=== PATIENT | female | born 1935 | race Caucasian/White ===

== ENCOUNTER 2019-01-31 01:55 | Inpatient (IN) | payer MEDICARE ==
--- OUTSIDE RECORDS SUMMARY | 2019-01-31 02:09 | XMS REPORT | Continuity of Care Document ---
:1935 External Reference #:[id number] Author Name Pham Andrade NP Address [address] [place] [address] Care Team Providers Name Role Phone Jon Edouard MD - Family Medicine Care Team Information Manager Pulmonary Problems Description No Information Available Social History Type Date Description Comments Sex Unknown Allergies, Adverse Reactions, Alerts Active Allergies Reaction Severity Comments Date Demerol swelling- face/ tongue 11/30/2018 Sulfa swelling- tongue, face 11/30/2018 Medications Active Medications SIG Qnty Indications Ordering Provider Date Glipizide ER 1 po bid Unknown 2.5mg Tablets ER 24HR Levothyroxine Sodium 1 po qd Unknown 112mcg Tablets Amlodipine Besylate 1 po qd Unknown 5mg Tablets Losartan Potassium 1 po qd Unknown 50mg Tablets Doxazosin Mesylate 1 po qd Unknown 2mg Tablets Multivitamin 1 po qd Unknown Fish Oil 1 po qd Unknown 1200mg Capsules Immunizations Description No Information Available Vital Signs Date Vital Result Comment 01/06/2019 6:48pm BP Systolic 124 mmHg BP Diastolic 60 mmHg Heart Rate 60 /min Body Temperature 97.5 F Respiratory Rate 16 /min Height 64.5 inches 5'4.50" Weight 161.00 lb BMI (Body Mass Index) 27.2 kg/m2 11/30/2018 2:24pm BP Systolic 142 mmHg BP Diastolic 80 mmHg Heart Rate 74 /min Body Temperature 97.7 F Respiratory Rate 20 /min Height 64.5 inches 5'4.50" Weight 175.00 lb per pt w/c bound BMI (Body Mass Index) 29.6 kg/m2 Results Test Date Facility Test Result H/L Range Note CBC Electronic [facility] 11/30/2018 [facility] WBC 13.5 x10^3/UL High 4.0-10.0 1 RBC 4.14 x10^6/UL 3.93-6.00 HGB 13.4 g/dL 12.0-17.0 HCT 41 % 35-50 MCV 99.0 fL High 80.0-95.0 2 MCH 32.4 pg High 25.6-32.2 MCHC 32.7 g/dL 32.2-36.0 RDW-CV 15.2 % High 11.6-14.4 PLT 291 x10^3/UL 163-400 MPV 10.7 fL 9.4-12.4 Erin# 8.22 x10^3/UL High 1.56-6.13 Lymph# 3.55 x10^3/UL 1.18-3.74 Burke# 1.26 x10^3/UL High 0.24-0.82 Eos # 0.4 x10^3/UL 0.0-0.5 Baso # 0.03 x10^3/UL 0.01-0.08 Erin% 61.1 % 34.0-70.0 Lymph % 26.3 % 20.0-52.0 Burke% 9.3 % 5.0-12.0 Eos% 3.0 % 0.7-7.0 Baso% 0.2 % 0.1-1.2 Comprehensive Metabolic 11/30/2018 [facility]) Sodium 142 mEq/L 134-149 Prof Potassium 4.1 mEq/L 3.6-5.5 Chloride 103 mEq/L 94-112 Carbon Dioxide 30 mEq/L 21-32 Glucose 147 mg/dL High 70-105 3 BUN 13 mg/dL 6-26 Creatinine 1.2 mg/dL 0.6-1.4 BUN/Creat Ratio 10.8 CALC 8.0-36.0 Calcium 10.0 mg/dL 8.6-10.2 Total Protein 6.8 g/dL 6.4-8.3 Albumin 4.1 g/dL 3.8-5.5 Globulin 2.7 g/dL 2.0-4.8 A/G Ratio 1.5 CALC 0.6-2.3 Alk. Phosphatase 50 U/L 30-110 Alt (SGPT) 12 U/L 7-35 Ast (Sgot) 14 U/L 5-34 Total Bilirubin 0.7 mg/dL 0.2-1.3 GFR Non- 46 ml/min/1.73m^ Low >=60 GFR 55 ml/min/1.73m^ Low >=60 Laboratory test 11/30/2018 [facility] Hemoglobin A1c 6.8 % High 4.1- 5.7 finding (607)- - (Fma) Ua - Micro (Fma) 11/30/2018 [facility] Medicine Appearance clear (607)- - Color yellow Glucose, Urine (Fma/CMC/CTX) neg Bilirubin neg Ketones neg SP Grav 1.015 Blood neg PH 5.5 Protein neg Urobil 0.2 Nitrite neg Leukocytes (Fma/CMC/Centrex) neg Hyaline - /Lpf Granular - /Lpf WBC (Fma,Centrex) 1-2 RBC - Mucus (Fma/CBC/Centrex) - /Lpf Epith rare /Lpf Bacteria rare /Hpf Amorphous (Fma/CMC/Centrex) - /Lpf Crystals, Fluid (Fma/CMC/CTX) - Z#Comments - 1 RESULTS VERIFIED BY REPEAT ANALYSIS 2 RESULTS VERIFIED BY REPEAT ANALYSIS 3 NON-FASTING Procedures Description No Information Available Medical Devices Description No Information Available Encounters Type Date Location Provider Dx Diagnosis Office Visit 11/30/2018 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, unspecified R26.2 Difficulty in walking, not elsewhere classified N28.89 Other specified disorders of kidney and ureter N39.46 Mixed incontinence Assessments Date Code Description Provider 01/06/2019 R00.1 Bradycardia, unspecified Pham Andrade NP 11/30/2018 C71.9 Malignant neoplasm of brain, unspecified ZAYDA Thorpe 11/30/2018 R26.2 Difficulty in walking, not elsewhere ZAYDA Thorep classified 11/30/2018 N28.89 Other specified disorders of kidney and ZAYDA Thorpe ureter 11/30/2018 N39.46 Mixed incontinence ZAYDA Thorpe Plan of Treatment Future Appointment(s):01/13/2019 2:30 pm - Jon Edouard M.D. at [facility] [id number]/06/2019 - Pham Andrade, NPR00.1 Bradycardia, unspecifiedComments: If you have any more passing out, or if you develop chest pain or shortness of breath, please go to the nearest emergency department.AllComments:1. Patient has been queried about patient's goals/preferences and functional/lifestyle goals at relevant visits. If relevant, describe: Has been discussed, noted above2. Treatment goals as explainedto the patient: see above3. Are there barriers to meeting treatment goals? Yes If Yes, please describe: Barriers include possible insurance limits, disease process, and difficulty with lifestyle changes4. Self-Management goals as described to the patient: Yes, see above As always, we strongly encourage a healthy diet and making physical activity a part of your every day life. If you have questions about how or where to start, please contact the office. Functional Status Description No Information Available Mental Status Description No Information Available Referrals Description No Information Available
--- OUTSIDE RECORDS SUMMARY | 2019-01-31 02:09 | XMS REPORT | Continuity of Care Document ---
:1935 External Reference #:[id number] Author Name ZAYDA Thorpe Address [address] [place] [address] Care Team Providers Name Role Phone Jon Edouard MD - Family Medicine Care Team Information Decatizer Problems Description No Information Available Social History Type Date Description Comments Sex Unknown Allergies, Adverse Reactions, Alerts Active Allergies Reaction Severity Comments Date Demerol swelling- face/ tongue 11/30/2018 Sulfa swelling- tongue, face 11/30/2018 Medications Active Medications SIG Qnty Indications Ordering Provider Date Glipizide ER Unknown 2.5mg Tablets ER 24HR Levothyroxine Sodium Unknown 112mcg Tablets Amlodipine Besylate Unknown 5mg Tablets Losartan Potassium Unknown 50mg Tablets Doxazosin Mesylate Unknown 2mg Tablets Multivitamin Unknown Fish Oil Unknown 1200mg Capsules Clonazepam 2-5MG as needed Unknown Immunizations Description No Information Available Vital Signs Date Vital Result Comment 11/30/2018 2:24pm BP Systolic 142 mmHg BP [...] x10^3/UL High 1.56-6.13 Lymph# 3.55 x10^3/UL 1.18-3.74 Dundy# 1.26 x10^3/UL High 0.24-0.82 Eos # 0.4 x10^3/UL 0.0-0.5 Baso # 0.03 x10^3/UL 0.01-0.08 Erin% 61.1 % 34.0-70.0 Lymph % 26.3 % 20.0-52.0 Dundy% 9.3 % 5.0-12.0 Eos% 3.0 % 0.7-7.0 Baso% 0.2 % 0.1-1.2 Comprehensive Metabolic 11/30/2018 [facility]) Sodium 142 mEq/L 134-149 Prof Potassium 4.1 [...] 55 ml/min/1.73m^ Low >=60 Laboratory test 11/30/2018 [facility] Hemoglobin A1c 6.8 % High 4.1- 5.7 finding (607)- - (Fma) Ua - Micro (Fma) 11/30/2018 [facility] Appearance clear (607)- - Color yellow [...] Medical Devices Description No Information Available Encounters Description No Information Available Assessments Date Code Description Provider 11/30/2018 C71.9 Malignant neoplasm of brain, unspecified ZAYDA Thorpe 11/30/2018 R26.2 Difficulty in walking, not elsewhere classified ZAYDA Thorpe 11/30/2018 N28.89 Other specified disorders of kidney and ureter ZAYDA Thorpe 11/30/2018 N39.46 Mixed incontinence ZAYDA Thorpe Plan of Treatment Future Appointment(s):01/13/2019 2:30 pm - Jon Edouard M.D. at [facility]11/30/2018 - Amarilis Valero, PAC71.9 Malignant neoplasm of brain, unspecifiedComments:Continue to follow with your oncologist.R26.2 Difficulty in walking, not elsewhere classifiedComments:Use your tools - wheelchair, walker, and stability bars. You will be receiving calls from [facility] and the [facility] to help assess your safety as well as physical therapy to help with balance and conditioning.N28.89 Other specified disorders of kidney and ureterComments:Check labs [id number] Mixed incontinenceComments:Continue doxazosin.AllComments:PCMHMedication Management Patient Understands medications he's taking? Yes Are there Barriers to Adherence? No Has the patient been asked about herbal supplements and therapies, and OTC meds? Yes Care Plan1. Patient has been queried about patient's goals/preferences and functional/lifestyle goals at relevant visits. Yes If relevant, describe: N/ A2. Treatment goals as explained to the patient: above3. Are there barriers to meeting treatment goals? No If Yes, please describe:4. Self- Management goals as described to the patient: Yes As always, we strongly encourage a healthy diet and making physical activity a part of your every day life. If you have questions about how or where to start, please contact the office. Functional Status Description No Information Available Mental Status Description No Information Available Referrals Description No Information Available
--- NOTE | 2019-01-31 02:11 | ED ---
Neurological HPI - HPI Summary HPI Summary: This patient is an 83 year old F presenting to [facility] with a chief complaint of weakness in lower extremities since prior to arrival. Pt reports she was on her feet all day moving out of her apartment, so when she arrived home she could not make it up the stairs. She lives with her two sons. Patients doctors believe the the weakness is caused by the steroid she is on. She is on steroids due to swelling in her brain. Patients son indicates that her doctors are trying to wean her off steroids, so she also gets withdrawals. On 01/27/19, pt reports she was lightheaded, weak and, dizzy. Pt denies weakness in arms, SOB, CP, abdominal pain, nausea, vomiting, and loss of appetite. Per triage, the patient rates the pain 0/10 in severity. - History of Current Complaint Chief Complaint: EDWeakness Stated Complaint: WEAKNESS PER EMS Time Seen by Provider: 01/31/19 02:07 Hx Obtained From: Patient, Family/Fence Installer Onset/Duration: Sudden Onset, Started minutes ago Current Severity: None Pain Intensity: 0 Pain Scale Used: 0-10 Numeric Character: Weak Aggravating: Exertion Alleviating: Nothing Associated Signs and Symptoms: Positive: Weakness, Dizziness, Lightheadness. Negative: Nausea/Vomiting, Chest Pain, Shortness of Breath - Allergy/Home Medications Allergies/Adverse Reactions: Allergies Allergy/AdvReac Type Severity Reaction Status Date / Time meperidine [From Demerol] Allergy Swelling Verified 01/31/19 02:05 Of Face,Lips,& Throat Sulfa (Sulfonamide Allergy Anaphylatic Verified 01/31/19 02:05 Antibiotics) Shock Home Medications: Home Medications Dexamethasone TAB* [Decadron TAB*] 2 mg PO DAILY 01/31/19 [History Confirmed ] Fish Oil 1,200 mg Softgel 1 cap PO DAILY 01/31/19 [History Confirmed 01/31/19] Levothyroxine Sodium 112 mcg PO DAILY 01/31/19 [History Confirmed 01/31/19] amLODIPine TAB* 5 mg PO DAILY 01/31/19 [History Confirmed 01/31/19] clonazePAM TAB(*) [KlonoPIN TAB(*)] 0.25 mg PO TID PRN 01/31/19 [History Confirmed 01/31/19] glipiZIDE [Glipizide ER] 0.25 mg PO DAILY 01/31/19 [History Confirmed 01/31/19] PMH/Surg Hx/FS Hx/Imm Hx Endocrine/Hematology History: Reports: Hx Diabetes Sensory History: Denies: Hx Legally Blind, Hx Deafness Opthamlomology History: Denies: Hx Legally Blind EENT History: Denies: Hx Deafness - Cancer History Cancer Type, Location and Year: Brain Tumor - Surgical History Surgery Procedure, Year, and Place: left kidney removal Infectious Disease History: No Infectious Disease History: Denies: Traveled Outside the [place] in Last 30 Days - Family History Known Family History: Positive: Diabetes - Social History Lives: With Family Alcohol Use: None Substance Use Type: Reports: None Smoking Status (MU): Never Smoked Tobacco Review of Systems Negative: Other - loss of appetite Negative: Chest Pain Negative: Shortness Of Breath Negative: Abdominal Pain, Vomiting, Nausea Neurological: Other - lightheaded Positive: Weakness All Other Systems Reviewed And Are Negative: Yes Physical Exam - Summary Physical Exam Summary: Appearance: Well-appearing, Well-nourished, lying in bed comfortably Skin: Warm, dry, no obvious rash Eyes: sclera anicteric, no conjunctival pallor ENT: mucous membranes moist, pharynx appears normal Neck: Supple, nontender Respiratory: Clear to auscultation, no signs of respiratory distress Cardiovascular: Normal S1, S2. No murmurs. Normal distal pulses in tibial and radial bilaterally. Abdomen: Soft, nontender, normal active bowel sounds present Musculoskeletal: Normal, Strength/ROM Intact Neurological: A&Ox3, awake and alert, mentation is normal, speech is fluent and appropriate; mild symmetric weakness in lower extremities, can lift both legs but not against resistance Psychiatric: affect is normal, does not appear anxious or depressed Triage Information Reviewed: Yes Vital Signs On Initial Exam: Initial Vitals Temp Pulse Resp BP Pulse Ox 97.8 F 60 16 147/86 93 01/31/19 02:02 01/31/19 02:02 01/31/19 02:02 01/31/19 02:02 01/31/19 02:02 Vital Signs Reviewed: Yes Procedures - Sedation Patient Received Moderate/Deep Sedation with Procedure: No Diagnostics - Vital Signs Vital Signs Temp Pulse Resp BP Pulse Ox 01/31/19 02:02 97.8 F 60 16 147/86 93 - Laboratory Result Diagrams: 01/31/19 02:28 01/31/19 02:28 Lab Statement: Any lab studies that have been ordered have been reviewed, and results considered in the medical decision making process. - EKG 0305 Cardiac Rate: NL EKG Rhythm: Sinus Bradycardia Summary of EKG Findings: EKG at 0305 reveals sinus bradycardia at 55 BPM, P waves, QRS complex, and T waves are within normal limits, T waves and intervals are normal, no ischemic changes. ED Physician has reviewed and interpreted this EKG. Course/Dx - Course Course Of Treatment: This patient is an 83 year old F presenting to [facility] with a chief complaint of weakness in lower extremities since prior to arrival. Pt reports she was on her feet all day moving out of her apartment, so when she arrived home she could not make it up the stairs. She lives with her two sons. Patients doctors believe the the weakness is caused by the steroid she is on. She is on steroids due to swelling in her brain. Patients son indicates that her doctors are trying to wean her off steroids, so she also gets withdrawals. On 01/27/19, pt reports she was lightheaded, weak and, dizzy. Pt denies weakness in arms, SOB, CP, abdominal pain, nausea, vomiting, and loss of appetite. Per triage, the patient rates the pain 0/10 in severity. Physical exam findings. Nml, mild symmetric weakness in le, can lift both legs but not against resistance. Blood work obtained. MCH is 32, BUN is 38, Creatinine is 1.30, BUN/Creatinine Ratio is 29.2, Glucose is 230, and Total Protein is 5.9. UA obtained. Urine Blood is 2+, Urine Leuocyte Esterase is 2+, Urine Bacteria is 1+. EKG at 0305 reveals sinus bradycardia at 55 BPM, P waves, QRS complex, and T waves are within normal limits, T waves and intervals are normal, no ischemic changes. ED Physician has reviewed and interpreted this EKG. 05:32 - Dr. Orona accepts pt for admission. Patient will be admitted. The patient is agreeable with this plan. - Diagnoses Provider Diagnoses: Generalized weakness, UTI (urinary tract infection) - Physician Notifications Discussed Care Of Patient With: Kayce Orona Time Discussed With Above Provider: 05:32 Instructed by Provider To: Other - Discussed case with Dr. Orona who accepts pt for admission. Discharge ED - Sign-Out/Discharge Documenting (check all that apply): Patient Departure - Admit - Discharge Plan Condition: Stable Disposition: ADMITTED TO [facility] - Billing Disposition and Condition Condition: STABLE Disposition: Admitted to [facility] - Attestation Statements Document Initiated by Gabrielaibe: Yes Documenting Scribe: Joelle Garza Provider For Whom Gabrielaibe is Documenting (Include Credential): Fausto Pfeiffer MD Scribe Attestation: Joelle Andrews scribed for Fausto Pfeiffer MD on 02/01/19 at 0329. Scribe Documentation Reviewed: Yes Provider Attestation: The documentation as recorded by the Joelle reynoso accurately reflects the service I personally performed and the decisions made by Fausto aldridge MD Status of Scribe Document: Viewed
[2019-01-31 02:36] LABS: ABS Lymphocytes 2.2 10^3/ul (1.0-4.8); ABS Monocytes 1.3 10^3/ul (0-0.8); Eosinophil % 0.3 %; Hematocrit 41 % (35-47); Hemoglobin 13.9 g/dL (12.0-16.0); Lymphocyte % 20.7 %; Mean Corpuscular HGB Conc 34 g/dL (31-36); Mean Corpuscular Hemoglobin 32 pg (27-31); Mean Corpuscular Volume 96 fL (80-97); Mean Platelet Volume 9.4 fL (7.4-10.4); Nucleated Red Blood Cells % 0.1; Platelet Count 185 10^3/uL (150-450); Red Blood Count 4.29 10^6 /uL (3.70-4.87); Red Cell Distribution Width 15 % (10-15); White Blood Count 10.5 10^3/uL (3.5-10.8)
[2019-01-31 02:51] LABS: Albumin 3.3 g/dL (3.2-5.2); Albumin/Globulin Ratio 1.3 (1-3); BUN/Creatinine Ratio 29.2 (8-20); Calcium 9.4 mg/dL (8.6-10.3); EGFR African American 47.3 (>60); EGFR Non-African American 39.1 (>60); Globulin 2.6 g/dL (2-4); Total Bilirubin 0.5 mg/dL (0.2-1.0); Total Protein 5.9 g/dL (6.4-8.9)
[2019-01-31 03:30] LABS: Potassium 4.3 mmol/L (3.5-5.0)
[2019-01-31 04:45] LABS: Urine Appearance Cloudy; Urine Bacteria 1+ (Absent); Urine Bilirubin Negative (Negative); Urine Blood 2+ (Negative); Urine Color Yellow; Urine Glucose Negative (Negative); Urine Ketones Negative (Negative); Urine Nitrite Negative (Negative); Urine Protein Negative (Negative); Urine Red Blood Cell 1+(3-5/hpf) (Absent); Urine Renal Epithelial Cells Present (Absent); Urine Specific Gravity 1.009 (1.010-1.030); Urine Squamous Epithelial Cell Present (Absent); Urine Urobilinogen Negative (Negative); Urine White Blood Cell 3+(>20/hpf) (Absent)
[2019-01-31] MEDS ORDERED: cefTRIAXone(*) 1 GM in NS 0.9% 50 ML* 50 ML IVPB ONE (05:17)
[2019-01-31] MEDS ORDERED: Dextrose 50% VIAL 50 ml IV PUSH PRN (08:19)
[2019-01-31] MEDS ORDERED: NS 0.9% 1000 ML** 1,000 ML IV SCH (08:30)
[2019-01-31] MEDS ORDERED: clonazePAM TAB(*) 0.5 MG PO PRN (09:00)
[2019-01-31] MEDS: amLODIPine TAB* 5 MG PO SCH (09:23)
[2019-01-31] MEDS: Dexamethasone TAB* 4 MG PO SCH (09:23)
[2019-01-31] MEDS: Levothyroxine TAB* 112 MCG TAB PO SCH (09:23)
[2019-01-31] MEDS: glipiZIDE TAB.XL* 2.5 MG PO SCH (09:23)
[2019-01-31 10:00] LABS: TSH (Thyroid Stimulating Horm) 0.34 mcIU/mL (0.34-5.60)
[2019-01-31] MEDS: Insulin LISPRO* 1 UNITS UNIT SUBCUT SCH ×3 (11:37→21:13)
--- NOTE | 2019-01-31 11:43 | HP ---
CC: Dr. Jon Edouard; Dr. Day; ZAYDA Serra; Neurosurgery at Hematology/ Oncology [facility] in [place] * HISTORY AND PHYSICAL: DATE OF ADMISSION: 01/31/19 TIME OF EVALUATION: 8 a.m. PRIMARY CARE PROVIDER: Dr. Jon Edouard. NEUROSURGEON: Dr. Day. NEUROSURGICAL PHYSICIAN MIXER LEVER OPERATOR: ZAYDA Serra CHIEF COMPLAINT: "My legs are weak." HISTORY OF PRESENT ILLNESS: Mrs. Wilkinson is an 83-year-old female with a past medical history of hypertension; type 2 diabetes; renal cancer, status post nephrectomy, with metastasis to the brain who presented to the emergency room with complaints of weakness. The patient's story goes back to a couple of years ago when she was spending the winter in [place]. She was diagnosed with renal cell cancer, had a nephrectomy done followed by radiation. In May 2018, she developed gradual onset of weakness and dizziness and she was evaluated at [facility] [place] in [place] in June 2018. A CT of the brain revealed a 1.3 cm left-sided hyperdense pontine lesion with edema extending to the left mid brain and into the cerebellar peduncle. She was admitted to [facility] for neurosurgical consultation, and at that point, she was started on dexamethasone. MRI of the brain done at that time showed the tumor's dimension to be 1.6 cm. The patient returned to the [facility] and she has been following at Neurosurgery at Hematology/Oncology [facility] in [place]. She completed CyberKnife in 4 fractions in September 2018 and she developed dizziness and lightheadedness after her dexamethasone was tapered and discontinued. At that time, she was already complaining of bilateral lower extremity weakness, had a hard time getting off the toilet, and there is a mention of uncontrolled glucose while on steroids. As per the patient, "she cannot be off steroids, so she continues to take dexamethasone." She states that she lived in [place] and can no longer live by herself, so her son is assisting her into moving to [place]. She states that yesterday from around 2 in the afternoon until 1 in the morning she was helping her son move her stuff to his home. She was packing boxes and he was carrying them to the car. They drove back to the [facility], and when she arrived home, she could not go upstairs because of lower extremity weakness, so at that point she was brought to the emergency room for further evaluation. When questioned exactly when the lower extremity weakness started, the patient has some difficulty pinpointing the exact time, but she thinks probably since around June she has noted progressive weakness requiring assistance to get up from her bed, from toilet, and she was able to go upstairs, but needed her son' s assistance. When I asked when was the last time she was able to go upstairs without help, she answers that "it's been a while." She also describes increased urinary frequency, but denies dysuria, abdominal or back pain. She also denies nausea, vomiting, diarrhea, chest pain, palpitations, shortness of breath. PAST MEDICAL HISTORY: 1. Renal cell cancer, status post nephrectomy and radiation in 2016. 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 2. Hypertension. 3. Type 2 diabetes. 4. Hypothyroidism. PAST SURGICAL HISTORY: Status post tonsillectomy in 1939, status post adenoidectomy in 1939, status post appendectomy in 1939, status post hernia repair in 1979, status post cholecystectomy in 1969, status post left nephrectomy and splenectomy in 2016. FAMILY HISTORY: There is a history of nuclear palsy and spina bifida. SOCIAL HISTORY: No history of tobacco, alcohol, or drug use. Surrogate decision maker is her son, Yobany Wilkinson, phone number is [phone]. PHYSICAL EXAMINATION GENERAL: The patient is an elderly lady with cushingoid features, lying in the ED stretcher, in no acute distress. VITAL SIGNS: Temperature 97.8, heart rate is 79, respiratory rate is 18, oxygen saturation is 95% on room air, blood pressure is 125/63. CHEST: Breath sounds present bilaterally with no added sounds. CVS: Normal S1, S2. Regular rate and rhythm with a systolic murmur. ABDOMEN: Obese, soft, nontender, nondistended. Bowel sounds are present. EXTREMITIES: There is no edema. NEUROLOGIC: She is alert, awake, oriented x3. Able to move all 4 extremities. She is able to hold both arms against gravity for 5 seconds and against resistance. She can lift both legs up to 30 degrees from the bed and cannot fight resistance. Most of her weakness appears to be proximal at the quadriceps area. LABORATORY AND IMAGING DATA: The patient had a CBC that showed a WBC of 10.5, hemoglobin of 13.9, hematocrit of 41, platelets of 185 with 66% neutrophils. Chemistry showed a sodium of 138, potassium of 4.3, chloride of 103, bicarb of 28, BUN of 38, creatinine of 1.3, glucose of 230, lactic acid is 1.6, calcium is 9.4. LFTs are normal. Urinalysis showed 2+ blood, 2+ LE, 3+ wbc's. CT of the brain without contrast shows a hyperdense mass involving the left andrew mid brain and cerebellum measuring approximately 1.5 cm with surrounding vasogenic edema. EKG done 01/31/19 at 3:05 a.m. shows sinus bradycardia at 55 beats per minute with T-wave inversions in III, T flattening in aVF. There is no prior EKG in our system to compare, but as per PCP's note from 01/06/19, the patient presented for slow pulse around 40s and 50s while at physical therapy, also with a history of witnessed syncope earlier in December. Per that record, the patient described that her heart rate is always slow and the plan at that time was to get records from her extruding machine operator, Dr. Eric in [place]. Other records obtained showed that the patient had an MRI of the brain in November 2018 with and without contrast that showed a heterogeneously enhancing mass lesion in the left mid brain and andrew measuring up to 2.5 cm with slightly increased localized vasogenic edema and mass effect compared to August 2018. These findings may be related to treatment effects versus progression of tumor. Findings are most suspicious for intracranial metastasis versus primary brain neoplasm. Very slight increase in ventricular size with transependymal CSF flow suspicious for developing acute hydrocephalus. Echocardiogram done September 2016 showed ejection fraction 60% to 65% with mild aortic insufficiency, mild tricuspid stenosis. ASSESSMENT AND PLAN: Mrs. Wilkinson is an 83-year-old female with a past medical history of renal cell carcinoma, status post left nephrectomy, with brain metastasis, status post CyberKnife; hypertension; hypothyroidism; type 2 diabetes who presented to the emergency room with complaints of weakness, found to have possible urinary tract infection. 1. Bilateral lower extremity weakness. 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 The patient has had months of progressive weakness, and at this point, she is not able to negotiate stairs even with assistance. The records I obtained show that she could not tolerate discontinuation of steroids. I am going to request neurology consultation to see if any further workup is recommended, but her brain lesion appears to be stable in size and I do not find any other focal neuro deficits that would suggest other etiology. We will check a CPK level as well as a TSH looking for other sources of myopathy. She will have physical therapy/occupational therapy consultations and she may require subacute rehab on discharge. 2. Possible urinary tract infection. The patient does describe increased urinary frequency, but no dysuria or other urinary complaints. Her urinalysis is positive for leukocyte esterase, but it has no nitrites and it has many squamous and renal epithelial cells. We will continue ceftriaxone empirically and follow her urine culture, but this may represent just contamination. As per emergency department notes, it is not clear if she was straight catheterized for this sample. 3. Mild dehydration. The patient had a very busy day yesterday helping her son with her move and she appears to be a little dry at this time. She will receive gentle IV fluids. 4. Type 2 diabetes. As per other notes, it is chronically uncontrolled in the setting of chronic steroid use. We will check a hemoglobin A1c. We will continue glipizide and add a lispro sliding scale. 5. Hypothyroidism. We will continue levothyroxine. 6. DVT prophylaxis. The patient has a score of 5 on a DVT Prophylaxis Risk Assessment Guide, but pharmacological prophylaxis is contraindicated in the setting of brain metastases. She will have SCDs. 7. Code status is full. TIME SPENT: Approximately 70 minutes was spent with the patient interview, medical records review, physical examination to complete this admission; more than half of this time was spent [id number] with the patient and coordination of care. [id number]/[facility] #: [id number] LYNN
[2019-01-31] MEDS ORDERED: Influenza VAC *QUAD* 2019-20* 0.5 ML SYRINGE IM ONE (13:00)
[2019-02-01] MEDS: Levothyroxine TAB* 112 MCG TAB PO SCH (05:34)
[2019-02-01 06:12] LABS: BUN/Creatinine Ratio 30.3 (8-20); Calcium 8.9 mg/dL (8.6-10.3); EGFR African American 52.4 (>60); EGFR Non-African American 43.3 (>60); Potassium 3.8 mmol/L (3.5-5.0)
[2019-02-01] MEDS: Insulin LISPRO* 1 UNITS UNIT SUBCUT SCH ×4 (07:19→21:42)
[2019-02-01] MEDS: glipiZIDE TAB.XL* 2.5 MG PO SCH (08:06)
[2019-02-01] MEDS: cefTRIAXone(*) 1 GM in NS 0.9% 50 ML* 50 ML IVPB SCH (08:06)
[2019-02-01] MEDS: amLODIPine TAB* 5 MG PO SCH (08:07)
[2019-02-01] MEDS: Dexamethasone TAB* 4 MG PO SCH (08:07)
--- NOTE | 2019-02-01 09:54 | CONS ---
CC: Dr. Noriega; Dr. Edouard; Dr. Gallo Day, [facility] Neurosurgery * NEUROLOGY CONSULTATION: DATE OF CONSULT: 02/01/19 REFERRING PROVIDER: Dr. Noriega. LOCATION: She is an inpatient in room 455. CHIEF COMPLAINT: Weakness. HISTORY OF PRESENT ILLNESS: Cassandra Wilkinson is an 83-year-old woman with a history of renal cell carcinoma, metastatic to her brain stem, who presented to the hospital yesterday with leg weakness. She was moving into the second story apartment of her son's because of increased need for care. She was not able to get up the stairs. She presented to the emergency room and was admitted. She was found to have proximal weakness on Dr. Noriega's exam. She had a normal CPK. She says that normally she can walk "not much". She said she uses a walker. She does not exercise. She has not noticed any change in her dizziness , change of vision, or weakness in her arms. She was also found to have a urinary tract infection. PAST MEDICAL HISTORY: Renal carcinoma diagnosed in [place] in 2017. She had a nephrectomy and radiation. She was found to have brain stem metastases in 2019 in [facility]. She underwent gamma knife therapy by Dr. Day in [place]. She has been on dexamethasone for months. She says it was last decreased a couple of weeks ago. She has a history of hypertension, type 2 diabetes, hypothyroidism. MEDICATIONS: At home consist of: 1. Dexamethasone 2 mg p.o. daily. 2. Clonazepam 0.25 mg p.o. t.i.d. as needed for anxiety. 3. Amlodipine 5 mg p.o. daily. 4. Levothyroxine 112 mcg p.o. daily. 5. Sliding scale insulin. 6. Glipizide 2.5 mg p.o. daily. 7. She was started on ceftriaxone yesterday, 1 g IV q.24 hours. ALLERGIES: She is allergic to SULFA DRUGS and had a reaction to DEMEROL. REVIEW OF SYSTEMS: Notable for dizziness which she says is unchanged from recent months. She denies double vision. She denies difficulty swallowing. She feels generally weak. She denies pain in her legs or arms. She notes some numbness in her toes which is chronic. She says she has fallen several times but no injuries. She uses a walker at home. She denies dysuria, gastrointestinal problems, or shortness of breath. She denies any problems with chest pain. She believes her weight has been stable. She has not noticed any chills or sweats. PHYSICAL EXAM: She is a somewhat overweight woman who is otherwise comfortably sitting in hospital chair. She has been afebrile throughout her hospital stay, most recently 97.9 orally. Blood pressure most recently 139/61, heart rate is running in the 50s and is regular, respiratory rate is 20, oxygen saturation is 95% on room air. Lungs are clear bilaterally. Heart tones are distant, but I do not hear any murmurs. There are no cervical bruits. Oral mucosa is moist, I do not see any thrush. Neurological exam, pupils are small at 2 mm and react minimally to light to 1.75 mm. Eye movements are extremely choppy, but there is no nystagmus. Visual fishman are full. Fascial musculature is notable for mild right lower facial weakness. Facial sensation is intact. Palate rises symmetrically and tongue protrudes in the midline. She has some mild slurring dysarthria. On motor exam, she has grade 4 proximal weakness in the upper extremities and grade 4+ distally in the upper extremities. She has 4-flexor weakness bilaterally. She has 4+ ankle dorsiflexor weakness bilaterally. Reflexes are trace at biceps and knees. Absent at the ankles. There is some mild spastic catch in the left more than the right leg. I did not attempt to ambulate her. Sensory exam is notable for distal sensory loss to light touch and vibration. She is alert and a fair historian. Memory seems vague. Language is generally fluent. Attention and concentration are reasonably intact. DIAGNOSTIC STUDIES/LAB DATA: Includes chemistries this morning notable for BUN at 36 and a creatinine of 1.19. Her BUN was 38 yesterday when she came in and a creatinine 1.30. Her calcium and electrolytes are normal. Hemoglobin A1c this morning is 8.4%. Liver enzymes are normal. Albumin is normal at 2.3. TSH is normal at 0.34. Creatinine kinase is normal at 102. CBC is within normal limits. Urinalysis is notable for being cloudy, 2+ leukocyte esterase, 3 + white blood cells, 1+ red blood cells. Urine bacteria is 1+. Brain CT is interpreted as showing a hyperdense mass involving the left andrew, mid brain, and cerebellum measuring approximately 1.5 cm with surrounding vasogenic edema. I reviewed the images personally and I agreed. There is some enlargement of the lateral ventricles and temporal horns, but the third ventricle looks fairly normal and there is a visible although somewhat deformed 4th ventricle. 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 Hopefully treating the urinary tract infection and getting some physical therapy will get her back on her feet again. It is not safe to decrease the steroids, particularly with the visible edema on her CT scan and location of the lesion that threaten the possibility of hydrocephalus. I think it would be prudent to get neurosurgical consultation just so they are aware of the patient in case she does develop hydrocephalus. At some point, she might benefit from repeating her MRI scan, but we do not have a comparison study here in [place]. I will discuss the case with Dr. Noriega. I also request that we do a nerve conduction EMG study to make sure she does not have anything else going on neuromuscularly. [id number]/[facility] #: [id number] [facility]
--- NOTE | 2019-02-01 09:55 | PN ---
Subjective Date of Service: 02/01/19 Interval History: No pain. Good appetite. Pt states she was to take 0.5 mg per day from 01/26 for 7 days then stop. I verified this on the phone with Dr. Day ). Objective Active Medications: Amlodipine Besylate (Norvasc Tab*) 5 mg PO DAILY [facility] Last Admin: 02/01/19 08:07 Dose: 5 mg Clonazepam (Klonopin Tab(*)) 0.25 mg PO TID PRN PRN Reason: ANXIETY Dexamethasone (Decadron Tab*) 0.5 mg PO DAILY [facility] Dextrose (Dextrose 50% Vial 50 Ml*) 25 ml IV PUSH .FOR FS < 60 - SS PRN PRN Reason: FS < 60 Glipizide (Glucotrol Xl*) 2.5 mg PO DAILY [facility] Last Admin: 02/01/19 08:06 Dose: 2.5 mg Ceftriaxone Sodium 1 gm/ (Sodium Chloride) 50 mls @ 100 mls/hr IVPB Q24H [facility] Last Admin: 02/01/19 08:06 Dose: 100 mls/hr Insulin Human Lispro (Humalog*) 0 units SUBCUT ACHS [facility]; Protocol Last Admin: 02/01/19 07:19 Dose: Not Given Levothyroxine Sodium (Synthroid Tab*) 100 mcg PO DAILY@0600 [facility] Vital Signs - 8 hr 02/01/19 02/01/19 03:41 07:15 Temperature 97.2 F 97.9 F Pulse Rate 54 62 Respiratory 16 20 Rate Blood Pressure 122/56 139/61 (mmHg) O2 Sat by Pulse 98 95 Oximetry Oxygen Devices in Use Now: None Appearance: Alert, partly up in bed. In good spirits. Looks comfortable. Eyes: No Scleral Icterus Respiratory: Symmetrical Chest Expansion and Respiratory Effort, Clear to Auscultation, Clear to Percussion, Clear to Palpation, - Cardiovascular: NL Sounds; No Murmurs; No JVD, RRR, No Edema, - Extremities: No Edema, No Clubbing, Cyanosis, - Skin: No Rash or Ulcers, No Nodules or Sclerosis, - Neurological: Alert and Oriented x 3, NL Sensation Result Diagrams: 01/31/19 02:28 02/01/19 05:33 Assess/Plan/Problems-Billing Assessment: - Patient Problems (1) Renal cell carcinoma Current Visit: Yes Status: Acute Code(s): C64.9 - MALIGNANT NEOPLASM OF UNSP KIDNEY, EXCEPT RENAL PELVIS SNOMED Code(s): 569349271 Comment: S/P Gamma Knife in [place]. Patient was to have taken 0.5 mg DXM starting 01/26/19 for 7 days then stop. I verified this with her NS Dr. Day ([phone]). I will give 2 doses 0.5 mg then stop after 02/03 dose as she received two 2 mg doses here (01/31 and 02/01). (2) Diabetes Current Visit: Yes Status: Acute Code(s): E11.9 - TYPE 2 DIABETES MELLITUS WITHOUT COMPLICATIONS SNOMED Code(s): 67277081 Comment: For "many years." Watch one more day, consider more glipizide XL and lower scale of Lispro. (3) Hypothyroid Current Visit: Yes Status: Acute Code(s): E03.9 - HYPOTHYROIDISM, UNSPECIFIED SNOMED Code(s): 07128355 Comment: TSH was 0.34 on 01/31/19, will decrease levothyroxine to 100 mcg, start 02/02. (4) HTN (hypertension) Current Visit: Yes Status: Acute Code(s): I10 - ESSENTIAL (PRIMARY) HYPERTENSION SNOMED Code(s): 08552750 Comment: Continue amlodipine. (5) Abnormal urinalysis Current Visit: Yes Status: Acute Code(s): R82.90 - UNSPECIFIED ABNORMAL FINDINGS IN URINE SNOMED Code(s): 524488031 Comment: Also urinary frequency. Continue ceftr, urine C&S results pending.
--- NOTE | 2019-02-01 14:53 | PN ---
Progress Note - Progress Note Date of Service: 02/01/19 Note: I spoke with Dr. Pacheco who recommended that the DXM be continued indefinitely at 0.5 mg per day.
[2019-02-01] MEDS ORDERED: Docusate CAP* 100 MG PO PRN (17:37)
[2019-02-01] MEDS: Docusate CAP* 100 MG PO SCH (17:45)
[2019-02-02] MEDS: Levothyroxine TAB* 100 MCG TAB PO SCH (05:48)
[2019-02-02] MEDS: amLODIPine TAB* 5 MG PO SCH (08:46)
[2019-02-02] MEDS: glipiZIDE TAB.XL* 2.5 MG PO SCH (08:46)
[2019-02-02] MEDS: cefTRIAXone(*) 1 GM in NS 0.9% 50 ML* 50 ML IVPB SCH (08:46)
[2019-02-02] MEDS: Docusate CAP* 100 MG PO SCH (08:47)
[2019-02-02] MEDS: Insulin LISPRO* 1 UNITS UNIT SUBCUT SCH ×4 (08:48→20:56)
[2019-02-02] MEDS ORDERED: Dexamethasone TAB* 0.5 MG PO SCH (09:00)
--- NOTE | 2019-02-02 16:22 | PN ---
Subjective Date of Service: 02/02/19 Interval History: Patient seen today, she denies any changes in her weakness past 24 hrs. She is able to ambulate from bed to bathroom with walker. NO events overnights. She is still complaining of the same weakness of both legs for past month. Past Medical History: Unchanged from Admission Objective Active Medications: Amlodipine Besylate (Norvasc Tab*) 5 mg PO DAILY [facility] Last Admin: 02/02/19 08:46 Dose: 5 mg Clonazepam (Klonopin Tab(*)) 0.25 mg PO TID PRN PRN Reason: ANXIETY Dexamethasone (Decadron Tab*) 0.5 mg PO DAILY [facility] Last Admin: 02/02/19 08:46 Dose: 0.5 mg Dextrose (Dextrose 50% Vial 50 Ml*) 25 ml IV PUSH .FOR FS < 60 - SS PRN PRN Reason: FS < 60 Docusate Sodium (Colace Cap*) 200 mg PO DAILY [facility] Last Admin: 02/02/19 08:47 Dose: Not Given Glipizide (Glucotrol Xl*) 2.5 mg PO DAILY [facility] Last Admin: 02/02/19 08:46 Dose: 2.5 mg Ceftriaxone Sodium 1 gm/ (Sodium Chloride) 50 mls @ 100 mls/hr IVPB Q24H [facility] Last Admin: 02/02/19 08:46 Dose: 100 mls/hr Insulin Human Lispro (Humalog*) 0 units SUBCUT ACHS [facility]; Protocol Last Admin: 02/02/19 11:18 Dose: Not Given Levothyroxine Sodium (Synthroid Tab*) 100 mcg PO DAILY@0600 [facility] Last Admin: 02/02/19 05:48 Dose: 100 mcg Vital Signs - 8 hr 02/02/19 02/02/19 11:15 15:15 Temperature 97.3 F 97.5 F Pulse Rate 51 52 Respiratory 20 16 Rate Blood Pressure 135/64 132/62 (mmHg) O2 Sat by Pulse 95 93 Oximetry Oxygen Devices in Use Now: None Appearance: Awake, alert. flat affect. no distress Eyes: No Scleral Icterus Ears/Nose/Mouth/Throat: Mucous Membranes Moist Neck: NL Appearance and Movements; NL JVP, Trachea Midline Respiratory: Symmetrical Chest Expansion and Respiratory Effort, Clear to Auscultation Cardiovascular: NL Sounds; No Murmurs; No JVD Abdominal: NL Sounds; No Tenderness; No Distention Extremities: No Edema - 5x5 bilateral although she is demonstrating weaker in her proximal lower extremeties Neurological: Alert and Oriented x 3 Result Diagrams: 01/31/19 02:28 02/01/19 05:33 Microbiology and Other Data: Microbiology 01/31/19 04:28 Urine Culture - Final Urine Enterococcus Faecalis Normal [place] Assess/Plan/Problems-Billing Assessment: 83 y/o female admitte for lower extremity weakness difficulty with stairs known to have renal cell carcinoma with mets to brain and left andrew mass with vasogenic edema, admitted for neuro work up and consultation, monitoring and PT/ OT. - Patient Problems (1) Cancer of andrew Current Visit: Yes Status: Acute Code(s): C71.7 - MALIGNANT NEOPLASM OF BRAIN STEM SNOMED Code(s): 521820045 Comment: - Found on admission during her CT of brain. - Records from outside facility MRI from 12/06/18 did shows the Left andrew mass - I called Dr. Burr to see the patient for further recommendations and will follow up with Dr. Pacheco recommendations from today (2) Myopathy Current Visit: Yes Status: Acute Code(s): G72.9 - MYOPATHY, UNSPECIFIED SNOMED Code(s): 61941409 Comment: - hard to determine for sure if her weakness are due to myopathy versus central weakness from her edema - Will need to continue her steroid despite the weakness given her left [place] edema (3) Diabetes Current Visit: Yes Status: Acute Code(s): E11.9 - TYPE 2 DIABETES MELLITUS WITHOUT COMPLICATIONS SNOMED Code(s): 62472344 Comment: - On glipizide XL 2.5 mg daily and sliding scale. (4) HTN (hypertension) Current Visit: Yes Status: Acute Code(s): I10 - ESSENTIAL (PRIMARY) HYPERTENSION SNOMED Code(s): 03613043 Comment: - Continue amlodipine. (5) Hypothyroid Current Visit: Yes Status: Acute Code(s): E03.9 - HYPOTHYROIDISM, UNSPECIFIED SNOMED Code(s): 59450600 Comment: TSH was 0.34 on 01/31/19, decreased levothyroxine to 100 mcg, start 02/02. (6) Renal cell carcinoma Current Visit: Yes Status: Acute Code(s): C64.9 - MALIGNANT NEOPLASM OF UNSP KIDNEY, EXCEPT RENAL PELVIS SNOMED Code(s): 456113592 Comment: S/P Gamma Knife in [place]. Patient was to have taken 0.5 mg DXM starting 01/26/19 for 7 days then stop this was verified this with her NS Dr. Day ([phone]) by Dr. Freeman. I spoke to Dr. Pacheco and he recommened to continue the decadron for now. Will follow up his final recommendations
[2019-02-02] MEDS ORDERED: Lorazepam PYXIS KEY PRN (16:35)
--- NOTE | 2019-02-02 17:50 | CONS ---
CC: [place]. [place], [place] * NEUROLOGY CONSULT FOLLOWUP: DATE OF FOLLOWUP: 02/02/19 LOCATION: She is an inpatient in room 445. HOSPITALIST: Dr. Guerrier. CHIEF COMPLAINT: Weakness, brainstem metastases. INTERVAL HISTORY: Since yesterday, Ms. Wilkinson does not feel any weaker or any stronger. She has been working with Physical Therapy and she generally needs assist to walk even with her walker. There are some additional records I was able to review from both [facility] well [facility] This includes a followup note from 10/27/18 from Anshul Parks RPA, indicating that she was off steroids and remained weak in her legs. Her strength was rated as iliopsoas 4+/5 bilaterally. The rest of her strength was listed as normal. Her reflexes were listed as normal as well other than 3+ patellar reflexes bilaterally. The next office note from Mr. Parks is 11/10/18, at which visit it was noted she had hard time getting off the toilet and that she was weaker since stopping steroids. She was 6 weeks out from CyberKnife radiosurgery. It was noted that since steroids were discontinued, she experienced progressive leg weakness proximally and orthostatic hypotension. There is an MRI report of the brain with and without contrast from 12/07/18. This was compared to a prior study of 09/03/18. There was a heterogeneously enhancing lesion in the left midbrain and andrew. There was thickened irregular peripheral enhancement. There was said to be extensive localized vasogenic edema in this location involving the brainstem, left middle cerebral peduncle, left cerebellum, left thalamus, left lateral basal ganglia. There was associated effacement of the fourth ventricle and the third and lateral ventricles appear slightly increased in size compared to 09/03/18 study. There was also periventricular high signal consistent with transependymal spinal fluid flow related to hydrocephalus. This finding had also slightly progressed compared to the study of 09/03/18. Currently, she notes dizziness only. She has not experienced any double vision. She does not have any headache. MEDICATIONS: Reviewed and she is on: 1. Ceftriaxone 1 g IV every 24 hours. 2. Amlodipine 5 mg p.o. q. day. 3. Clonazepam 0.25 mg p.o. t.i.d. as needed for anxiety. 4. Dexamethasone 0.5 mg p.o. once per day. 5. Glucotrol XL 2.5 mg p.o. q. day. 6. Sliding scale insulin. 7. Levothyroxine 100 mcg p.o. q. day. PHYSICAL EXAM: She is well hydrated. Temperature is 97.5, blood pressure 132/ 62, heart rate running in the low 50s and regular. Respiratory rate is 16 and oxygen saturation is 93% on room air. Neurological Exam: Pupils react equally from 3 to 2 mm. Eye movements are very saccadic and smooth pursuit, but no nystagmus and eye movements are full. Facial musculature is notable for very mild flattening of the left nasolabial fold. Jaw jerk is trace. Speech is clear. There is no dysarthria. On motor exam, there may be a mild spastic catch in the left arm. She has pathologically brisk reflexes at the biceps with spread into the forearms. Triceps reflexes are fairly normal. In the lower extremities, she has spastic catch in the left more than the right leg. She has knee clonus bilaterally. Ankle reflexes are intact, but there is no clonus. Plantar responses are extensor bilaterally. She barely has antigravity strength of the left hip flexors. She has grade 4- left ankle dorsiflexor weakness. She has grade 4- right hip flexor weakness and grade 4 to 4+ right ankle dorsiflexor weakness. She is alert and oriented with intact sensorium. Her memory is intact and language is fluent. LABORATORY DATA: Reveals no new blood tests today. Urine culture notable for Enterococcus faecalis with moderate colony counts. IMPRESSION AND PLAN: At this point, Ms. Wilkinson looks more to me like upper motor neuron pattern weakness. In reviewing the records, also it seems that she got worse as the steroids were tapered. I recommend increasing dexamethasone back to 2 mg twice per day. I have discussed this with the patient and she understands and is in agreement. It has been her experience as the steroids are tapered she gets weaker. I will put in lab tests to recheck her chemistries tomorrow, specifically glucose and potassium. I would like to get an MRI scan of the brain tomorrow without contrast to try to assess the degree of edema. We may have to send for the prior studies in [place] to compare, but at least we have a report to try to make some comparison. She indicates that she finds MRI scans to be very claustrophobic and so I have put in an order for her to receive 0.5 mg of clonazepam prior to the study. I will continue to follow her along with you. [id number]/[facility] #: [id number] LYNN
[2019-02-02] MEDS: Dexamethasone TAB* 1 MG PO SCH (20:44)
--- NOTE | 2019-02-02 21:40 | CONSULT ---
Subjective Date of Service: 02/02/19 Interval History: Ms. 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 She was admitted to the hospital for lower extremity weakness and possible UTI. She presented to the hospital with a known pressure injury to the right buttocks. This has been present for a few weeks. Family has been treating the area with Zinc oxide cream at home. Patient seen and examined at bedside. Family History: Unchanged from Admission Social History: Unchanged from Admission Past Medical History: Unchanged from Admission Review of Systems - Measurements Intake and Output: Intake and Output Last 24 Hours 01/31/19 02/01/19 02/02/19 02/03/19 06:59 06:59 06:59 06:59 Intake Total 2180 845 225 Output Total 300 Balance 1880 845 225 Weight 170 lb 161 lb 4.8 oz Intake: IV Fluids 1290 NS (0.9%) 300 Oral 890 845 225 Output: Urine 300 Other: Estimated Void Medium Medium # Bowel Movements 1 Estimated Stool Amount Medium # Voids 1 3 - Review of Systems Constitutional Symptoms: Negative: Fever, Other Dermatology: Positive: Other - Pressure injury to buttocks Objective Active Medications: Amlodipine Besylate (Norvasc Tab*) 5 mg PO DAILY [facility] Clonazepam (Klonopin Tab(*)) 0.25 mg PO TID PRN Reason: ANXIETY Dexamethasone (Decadron Tab*) 2 mg PO BID [facility] Dextrose (Dextrose 50% Vial 50 Ml*) 25 ml IV PUSH PRN FOR FS < 60 Docusate Sodium (Colace Cap*) 200 mg PO DAILY [facility] Glipizide (Glucotrol Xl*) 2.5 mg PO DAILY [facility] Ceftriaxone Sodium 1 gm/ (Sodium Chloride) 50 mls @ 100 mls/hr IVPB Q24H [facility] Insulin Human Lispro (Humalog*) 0 units SUBCUT ACHS [facility]; Protocol Levothyroxine Sodium (Synthroid Tab*) 100 mcg PO DAILY@0600 [facility] Lorazepam (Ativan Inj*) 0.5 mg IV PUSH UC ONCE PRN Reason: MRI Vital Signs - 8 hr 02/02/19 15:15 Temperature 97.5 F Pulse Rate 52 Respiratory 16 Rate Blood Pressure 132/62 (mmHg) O2 Sat by Pulse 93 Oximetry Oxygen Devices in Use Now: None Appearance: NAD, laying in bed Ears/Nose/Mouth/Throat: Mucous Membranes Moist Respiratory: Symmetrical Chest Expansion and Respiratory Effort Extremities: - - See skin note below Neurological: Alert and Oriented x 3 Nutrition: Taking PO's Result Diagrams: 02/04/19 04:41 02/04/19 04:41 Additional Lab and Data: Above labs were pulled into the note, when the note was edited prior to signing. Please see labs below from the day of consultation. Laboratory Tests 01/31/19 01/31/19 02/01/19 02:28 02:28 05:33 WBC 10.5 Hgb 13.9 Hct 41 Plt Count 185 Sodium 144 Potassium 3.8 Chloride 111 Carbon Dioxide 28 BUN 36 H Creatinine 1.19 H Glucose 90 Hemoglobin A1c Total Protein 5.9 L Albumin 3.3 Globulin 2.6 02/01/19 05:33 WBC Hgb Hct Plt Count Sodium Potassium Chloride Carbon Dioxide BUN Creatinine Glucose Hemoglobin A1c 8.4 H Total Protein Albumin Globulin Skin Deviation Note - Skin Deviation Findings Right buttock - There is an ulcer to the right buttock, measures 1.6 cm x 1.7 cm x 0.1 cm. The wound base is pink granulation tissue. The surrounding skin is intact. There is no drainage. Wound Problem/Plan Assessment: Ms. 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 She was admitted to the hospital for lower extremity weakness and possible UTI. She presented to the hospital with a known pressure injury to the right buttocks. This has been present for a few weeks. Family has been treating the area with Zinc oxide cream at home. 1. Right buttocks stage 2 pressure injury. VNS has been following at home, they have been using a barrier cream with zinc oxide. Recommend applying barrier cream to the buttocks as needed. Frequent turning and repositioning. Use lifting device to move in bed to prevent friction and shearing injury. Will check a prealbumin level. 2. DM2. HgA1C 8.4 during this admission. Maintain good glycemic control to allow for wound healing. 3. Renal cell cancer with brain mets. 4. Diet. Consistent carbohydrate diet. 5. Code Status. Full Code Status. 6. Disposition. Inpatient, disposition per primary medicine team. TIME SPENT: Time for this wound consultation was 25 minutes and 15 minutes was spent with the patient and family discussing past medical history; current treatment of wound; assessing, measuring, and photographing the wound; and repositioning the patient in bed. Is Patient a Wound Clinic Patient: No Attending: Gianna Fermin
[2019-02-03] MEDS: Levothyroxine TAB* 100 MCG TAB PO SCH (05:29)
[2019-02-03 06:26] LABS: ABS Lymphocytes 3.1 10^3/ul (1.0-4.8); ABS Monocytes 0.9 10^3/ul (0-0.8); ABS Neutrophils 7.6 10^3/ul (1.5-7.7); Eosinophil % 0.4 %; Hematocrit 41 % (35-47); Hemoglobin 13.8 g/dL (12.0-16.0); Lymphocyte % 26.4 %; Mean Corpuscular HGB Conc 34 g/dL (31-36); Mean Corpuscular Hemoglobin 33 pg (27-31); Mean Corpuscular Volume 96 fL (80-97); Mean Platelet Volume 9.4 fL (7.4-10.4); Platelet Count 219 10^3/uL (150-450); Red Blood Count 4.24 10^6 /uL (3.70-4.87); Red Cell Distribution Width 14 % (10-15); White Blood Count 11.7 10^3/uL (3.5-10.8)
[2019-02-03 06:52] LABS: Albumin 3.2 g/dL (3.2-5.2); Albumin/Globulin Ratio 1.3 (1-3); BUN/Creatinine Ratio 23.7 (8-20); Calcium 9.2 mg/dL (8.6-10.3); EGFR African American 52.9 (>60); EGFR Non-African American 43.7 (>60); Globulin 2.5 g/dL (2-4); Magnesium 1.4 mg/dL (1.9-2.7); Phosphorus 2.7 mg/dL (2.5-5.0); Potassium 4.4 mmol/L (3.5-5.0); Total Bilirubin 0.4 mg/dL (0.2-1.0); Total Protein 5.7 g/dL (6.4-8.9)
[2019-02-03] MEDS ORDERED: LORazepam INJ* 2 MG/ML 1 ML VIAL IV PUSH PRN (07:00)
[2019-02-03] MEDS ORDERED: Magnesium Sulfate IV* 2 GM in NS 0.9% 100 ML* 100 ML IVPB ONE (09:31)
[2019-02-03] MEDS: Insulin LISPRO* 1 UNITS UNIT SUBCUT SCH ×4 (09:51→20:15)
[2019-02-03] MEDS ORDERED: Magnesium Sulfate 2 GM IV* 2 GM/50 ML BAG IVPB ONE (10:00)
[2019-02-03] MEDS: Docusate CAP* 100 MG PO SCH (10:01)
[2019-02-03] MEDS: glipiZIDE TAB.XL* 2.5 MG PO SCH (10:54)
[2019-02-03] MEDS: amLODIPine TAB* 5 MG PO SCH (10:54)
[2019-02-03] MEDS: Dexamethasone TAB* 1 MG PO SCH ×2 (10:54→20:16)
[2019-02-03] MEDS: cefTRIAXone(*) 1 GM in NS 0.9% 50 ML* 50 ML IVPB SCH (10:55)
[2019-02-03] MEDS ORDERED: Lorazepam PYXIS KEY PRN (12:07)
--- NOTE | 2019-02-03 12:22 | PN ---
Subjective Date of Service: 02/03/19 Interval History: Patient seen today, she is reporting feeling weaker today, She has significant change since yesterday's unable to move from supine to sit with Physical therapy today. They changed to RADHA at this time. It could be due to the increase of her steroid or progression of tumor. case discussed with Dr. Gusman and he recommended MRI brain with and MRI spectroscopy. Patient declined and refused contrast for the MRI brain and MRI spectroscopy. Discussed with Dr. Pacheco and updated him on her declined motor skill and recommended to proceed with the MRI without contrast today. Order placed to be done now. I also called and discussed her case with Dr. Day in [place]. I spoke to Janis Sawyer [phone] and I reviewed her current clinical course with her over the phone. Apparently, patient has been declining on and off with muscle weakness and respond at times to steroid taper up and down. She had CT head 01/19/19 that showed improved ventricle size when compared to MRI of 12/10/18. I requested both images to be overnight to my attention here at [facility] for comparison. Janis also will review with Dr. Day to see if there is any further to offer in term treatment versus palliative care. Past Medical History: Unchanged from Admission Objective Active Medications: Amlodipine Besylate (Norvasc Tab*) 5 mg PO DAILY [facility] Last Admin: 02/03/19 10:54 Dose: 5 mg Clonazepam (Klonopin Tab(*)) 0.25 mg PO TID PRN PRN Reason: ANXIETY Dexamethasone (Decadron Tab*) 2 mg PO BID [facility] Last Admin: 02/03/19 10:54 Dose: 2 mg Dextrose (Dextrose 50% Vial 50 Ml*) 25 ml IV PUSH .FOR FS < 60 - SS PRN PRN Reason: FS < 60 Docusate Sodium (Colace Cap*) 200 mg PO DAILY [facility] Last Admin: 02/03/19 10:01 Dose: Not Given Glipizide (Glucotrol Xl*) 2.5 mg PO DAILY [facility] Last Admin: 02/03/19 10:54 Dose: 2.5 mg Ceftriaxone Sodium 1 gm/ (Sodium Chloride) 50 mls @ 100 mls/hr IVPB Q24H [facility] Last Admin: 02/03/19 10:55 Dose: 100 mls/hr Insulin Human Lispro (Humalog*) 0 units SUBCUT ACHS [facility]; Protocol Last Admin: 02/03/19 09:51 Dose: 2 units Levothyroxine Sodium (Synthroid Tab*) 100 mcg PO DAILY@0600 [facility] Last Admin: 02/03/19 05:29 Dose: 100 mcg Miscellaneous (Ativan Pyxis Ibarra) 1 ea N/A .ATIVAN IV IBARRA PRN PRN Reason: PYXIS IBARRA Vital Signs - 8 hr 02/03/19 02/03/19 02/03/19 07:45 09:52 10:56 Temperature 97.2 F Pulse Rate 57 Respiratory 20 18 12 Rate Blood Pressure 132/69 (mmHg) O2 Sat by Pulse 89 Oximetry Oxygen Devices in Use Now: None Appearance: awake, alert slightly lethargic from her ativan. She is alert to time, place and person. Eyes: No Scleral Icterus, - - EOMI Ears/Nose/Mouth/Throat: Mucous Membranes Moist Neck: NL Appearance and Movements; NL JVP, Trachea Midline Respiratory: Symmetrical Chest Expansion and Respiratory Effort, Clear to Auscultation Cardiovascular: NL Sounds; No Murmurs; No JVD, No Edema Abdominal: NL Sounds; No Tenderness; No Distention Neurological: Alert and Oriented x 3, - - +/- 3/5 lower extremity bilateral worse proximal muscles. Result Diagrams: 02/03/19 05:54 02/03/19 05:54 Microbiology and Other Data: Microbiology 01/31/19 04:28 Urine Culture - Final Urine Enterococcus Faecalis Normal Rosy Assess/Plan/Problems-Billing Assessment: 83 y/o female admitte for lower extremity weakness difficulty with stairs known to have renal cell carcinoma with mets to brain and left andrew mass with vasogenic edema, admitted for neuro work up and consultation, monitoring and PT/ OT. - Patient Problems (1) Cancer of andrew Current Visit: Yes Status: Acute Code(s): C71.7 - MALIGNANT NEOPLASM OF BRAIN STEM SNOMED Code(s): 138229191 Comment: - Found on admission during her CT of brain. - Records from outside facility MRI from 12/10/18 did shows the Left andrew mass - I spoke Dr. Gusman and he recommended MRI brain with and MRI spectroscopy. Patient declined and refused contrast for the MRI brain and MRI spectroscopy due to her history of nephrectomy. - I Discussed with Dr. Pacheco and updated him on her declined motor skill and herecommended to proceed with the MRI without contrast today. Order placed to be done now. - I also called and discussed her case with Dr. Day in [place]. I spoke to Janis Sawyer [phone] and I reviewed her current clinical course with her over the phone. Apparently, patient has been declining on and off with muscle weakness and respond at times to steroid taper up and down. She had CT head 01/19/19 that showed improved ventricle size when compared to MRI of 12/10/18. - I requested both images to be overnight to my attention here at [facility] for comparison. Janis also will review with Dr. Day to see if there is any further to offer in term treatment versus palliative care. (2) Myopathy Current Visit: Yes Status: Acute Code(s): G72.9 - MYOPATHY, UNSPECIFIED SNOMED Code(s): 53292062 Comment: - hard to determine for sure if her weakness are due to myopathy versus central weakness from her edema - Will need to continue her steroid despite the weakness given her left dallas edema - will obtain MRI today to reassess her brain mass size and ventricular size rule out hydrocephallus urgently (3) Diabetes Current Visit: Yes Status: Acute Code(s): E11.9 - TYPE 2 DIABETES MELLITUS WITHOUT COMPLICATIONS SNOMED Code(s): 77079278 Comment: - On glipizide XL 2.5 mg daily and sliding scale. (4) HTN (hypertension) Current Visit: Yes Status: Acute Code(s): I10 - ESSENTIAL (PRIMARY) HYPERTENSION SNOMED Code(s): 85248753 Comment: - Continue amlodipine. (5) Hypothyroid Current Visit: Yes Status: Acute Code(s): E03.9 - HYPOTHYROIDISM, UNSPECIFIED SNOMED Code(s): 81195055 Comment: TSH was 0.34 on 01/31/19, decreased levothyroxine to 100 mcg, start 02/02. (6) Renal cell carcinoma Current Visit: Yes Status: Acute Code(s): C64.9 - MALIGNANT NEOPLASM OF UNSP KIDNEY, EXCEPT RENAL PELVIS SNOMED Code(s): 873723231 Comment: - S/P Gamma Knife to her leyla stem in 09/2018 in [place]. Patient was to have taken 0.5 mg DXM starting 01/26/19 for 7 days then stop this was verified this with her NS Dr. Day ([phone]) by Dr. Freeman. - I spoke to Dr. Pacheco and he recommened to continue the decadron for now. Will follow up his final recommendations. - Patient seen today, she is reporting feeling weaker today, She has significant change since yesterday's unable to move from supine to sit with Physical therapy today. They changed to RADHA at this time. (7) DVT prophylaxis Current Visit: Yes Status: Acute Code(s): Z29.9 - ENCOUNTER FOR PROPHYLACTIC MEASURES, UNSPECIFIED SNOMED Code(s): 503221813 Comment: - SCD Status and Disposition: will plan to meet with family and update her clinical course and discuss palliative care pending her MRI finding and comparing images from [place]
[2019-02-03] MEDS ORDERED: LORazepam INJ* 2 MG/ML 1 ML VIAL IV PUSH ONE (15:30)
[2019-02-03] MEDS ORDERED: Acetaminophen ADULT LIQ* 650 MG/20.3 ML UDC PO PRN (20:27)
[2019-02-03] MEDS ORDERED: Polyethylene Glycol 3350* 17 GM PACKET PO PRN (20:27)
--- NOTE | 2019-02-03 20:38 | CONS ---
CONSULTATION NOTE: DATE OF CONSULT: 02/03/19 HISTORY OF PRESENT ILLNESS: The patient is a very pleasant 83-year-old female with a history of renal cell carcinoma and metastases to the brain. The patient reports that this was diagnosed several months ago, and she underwent a few months ago CyberKnife therapy by Dr. Day in [place]. The patient was on steroids, and she was attempting to wean her off steroids and she started to experience generalized weakness and difficulty with walking. The patient was admitted to the hospital by the hospitalist team and was restarted on steroids by Dr. Pacheco. Requested to see the patient by Dr. Guerrier because of the patient's history. The patient reports that she has generalized weakness in the upper and lower extremities. Denies any numbness or tingling. Denies any difficulty swallowing. Denies any nausea or vomiting. Denies any headache. Denies any vision difficulties. She is unable to walk because of generalized weakness. PAST MEDICAL HISTORY: Diabetes, renal cancer. PAST SURGICAL HISTORY: Left kidney resection, CyberKnife. HOME MEDICATIONS: The patient is on: 1. Decadron 2 mg p.o. daily. 2. Fish oil. 3. Levothyroxine. 4. Amlodipine. 5. Clonazepam. 6. Glipizide. ALLERGIES: The patient is allergic to MEPERIDINE and SULFA. FAMILY HISTORY: Diabetes. SOCIAL HISTORY: Tobacco, negative. Alcohol, negative. Recreational drug use, negative. PHYSICAL EXAM: The patient is not in acute distress. She is awake, alert, and oriented x3. Her pupils are equal and reactive. Cranial nerves II through XII are grossly intact. Motor 4/5 in all extremities. No pronator drift. Sensory grossly intact to light touch. Deep tendon reflexes +1 bilaterally. No clonus. Babinski positive bilaterally. Lisa's negative. The patient has no tenderness to palpation of the thoracic or lumbar spine. She has free range of motion of the cervical spine. DIAGNOSTIC STUDIES: The patient had a CT scan of the brain revealing a left pontine lesion with mass effect. ASSESSMENT: The patient is a very pleasant 83-year-old female with a history of renal cell carcinoma and possible metastases to the brain, status post CyberKnife. PLAN: The patient at this point is doing quite well. She has restarted steroid therapy per Dr. Pacheco's recommendations. Discussed imaging with Dr. Harvey. The patient was scheduled for an MRI of the brain with and without contrast because of the possibility of radiation necrosis versus recurrence of the tumor or vasogenic edema. We discussed with Dr. Harvey, who recommended obtaining the previous records and images for comparison as well as attempt MR spectroscopy. Unfortunately, no study is ideal for the above differential diagnosis. The patient had an MRI of the brain, but unfortunately refused contrast. Findings are similar with CT scan of the brain revealing mild mass effect in the left pontine region and mild mass effect in the fourth ventricle. There is evidence of ventriculomegaly. , according to his note, reviewed the case with Dr. Day's office, who reported that the patient's ventriculomegaly has improved in the recent study compared to the MRI of . At this point, we will monitor the patient. We will recommend followup with Dr. Day for consideration for further treatment and complete imaging in order to further delineate the nature of the lesion. Thank you very much for allowing us to participate in the care of this patient. Please do not hesitate to contact our office in case you have any further questions or concerns regarding the care of this patient. [id number]/[facility] #: [id number] LYNN
[2019-02-04 04:51] LABS: ABS Lymphocytes 2.2 10^3/ul (1.0-4.8); ABS Monocytes 0.9 10^3/ul (0-0.8); ABS Neutrophils 10.3 10^3/ul (1.5-7.7); Eosinophil % 0.2 %; Hematocrit 41 % (35-47); Hemoglobin 13.7 g/dL (12.0-16.0); Lymphocyte % 16.5 %; Mean Corpuscular HGB Conc 33 g/dL (31-36); Mean Corpuscular Hemoglobin 32 pg (27-31); Mean Corpuscular Volume 97 fL (80-97); Mean Platelet Volume 9.3 fL (7.4-10.4); Nucleated Red Blood Cells % 0.1; Platelet Count 225 10^3/uL (150-450); Red Blood Count 4.23 10^6 /uL (3.70-4.87); Red Cell Distribution Width 15 % (10-15); White Blood Count 13.5 10^3/uL (3.5-10.8)
[2019-02-04 05:07] LABS: BUN/Creatinine Ratio 25.8 (8-20); Calcium 9.5 mg/dL (8.6-10.3); EGFR African American 66.4 (>60); EGFR Non-African American 54.8 (>60); Magnesium 1.8 mg/dL (1.9-2.7); Phosphorus 2.9 mg/dL (2.5-5.0); Potassium 4.5 mmol/L (3.5-5.0)
[2019-02-04] MEDS: Levothyroxine TAB* 100 MCG TAB PO SCH (05:09)
[2019-02-04] MEDS ORDERED: LORazepam INJ* 2 MG/ML 1 ML VIAL IV PUSH ONE (08:00)
[2019-02-04] MEDS: Insulin LISPRO* 1 UNITS UNIT SUBCUT SCH ×4 (08:59→22:37)
[2019-02-04] MEDS: cefTRIAXone(*) 1 GM in NS 0.9% 50 ML* 50 ML IVPB SCH (09:55)
[2019-02-04] MEDS: amLODIPine TAB* 5 MG PO SCH (09:56)
[2019-02-04] MEDS: Magnesium Oxide TAB* 400 MG PO SCH (09:56)
[2019-02-04] MEDS: glipiZIDE TAB.XL* 2.5 MG PO SCH (09:56)
[2019-02-04] MEDS: Docusate CAP* 100 MG PO SCH (09:56)
[2019-02-04] MEDS: Dexamethasone TAB* 1 MG PO SCH ×2 (09:56→22:40)
--- NOTE | 2019-02-04 11:10 | PN ---
Subjective Date of Service: 02/04/19 Interval History: Patient seen today, doing well no fever. She is still complaining of leg weakness. Physical therapy was working with her this morning, their full assessment is still pending. No events overnight. Consult from Dr. Gusman noted and appreciated. MRI brain done yesterday report noted and reviewed Past Medical History: Unchanged from Admission Objective Active Medications: Acetaminophen (Tylenol Adult Liq*) 650 mg PO Q4H PRN PRN Reason: PAIN - MILD Amlodipine Besylate (Norvasc Tab*) 5 mg PO DAILY [facility] Last Admin: 02/04/19 09:56 Dose: 5 mg Clonazepam (Klonopin Tab(*)) 0.25 mg PO TID PRN PRN Reason: ANXIETY Dexamethasone (Decadron Tab*) 2 mg PO BID [facility] Last Admin: 02/04/19 09:56 Dose: 2 mg Dextrose (Dextrose 50% Vial 50 Ml*) 25 ml IV PUSH .FOR FS < 60 - SS PRN PRN Reason: FS < 60 Docusate Sodium (Colace Cap*) 200 mg PO DAILY [facility] Last Admin: 02/04/19 09:56 Dose: 200 mg Glipizide (Glucotrol Xl*) 2.5 mg PO DAILY [facility] Last Admin: 02/04/19 09:56 Dose: 2.5 mg Ceftriaxone Sodium 1 gm/ (Sodium Chloride) 50 mls @ 100 mls/hr IVPB Q24H [facility] Last Admin: 02/04/19 09:55 Dose: 100 mls/hr Insulin Human Lispro (Humalog*) 0 units SUBCUT ACHS [facility]; Protocol Last Admin: 02/04/19 08:59 Dose: 4 units Levothyroxine Sodium (Synthroid Tab*) 100 mcg PO DAILY@0600 [facility] Last Admin: 02/04/19 05:09 Dose: 100 mcg Magnesium Oxide (Magox 400 Tab*) 400 mg PO DAILY [facility] Last Admin: 02/04/19 09:56 Dose: 400 mg Miscellaneous (Ativan Pyxis Ibarra) 1 ea N/A .ATIVAN IV IBARRA PRN PRN Reason: PYXIS IBARRA Polyethylene Glycol/Electrolytes (Miralax*) 17 gm PO DAILY PRN PRN Reason: CONSTIPATION Vital Signs - 8 hr 02/04/19 02/04/19 02/04/19 04:08 08:00 08:50 Temperature 97.4 F 98.3 F Pulse Rate 52 52 Respiratory 16 18 20 Rate Blood Pressure 136/63 144/72 (mmHg) O2 Sat by Pulse 95 95 Oximetry Oxygen Devices in Use Now: None Appearance: awake, alert no distress. no fever or chills. 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 - Patient Problems (1) Cancer of andrew Current Visit: Yes Status: Acute Code(s): C71.7 - MALIGNANT NEOPLASM OF BRAIN STEM SNOMED Code(s): 380977332 Comment: - Found on admission during her CT of brain. - Records from outside facility MRI from 12/10/18 did shows the Left andrew mass - I spoke Dr. Gusman and he recommended MRI brain with and MRI spectroscopy. Patient declined and refused contrast for the MRI brain and MRI spectroscopy due to her history of nephrectomy. - I Discussed with Dr. Pacheco and updated him on her declined motor skill and herecommended to proceed with the MRI without contrast today. MRI report noted no significant changes. Awaiting images from [facility] for comparison. Will follow up with neuro input today - I also called and discussed her case with Dr. Day in [place] on 02/03/19. I spoke to Janis Silverio [phone] and I reviewed her current clinical course with her over the phone. Apparently, patient has been declining on and off with muscle weakness and respond at times to steroid taper up and down. She had CT head 01/19/19 that showed improved ventricle size when compared to MRI of 12/10/18. - I requested both images to be send to my attention here at [facility] for comparison. Janis also will review with Dr. Day to see if there is any further to offer in term treatment versus palliative care. (2) Myopathy Current Visit: Yes Status: Acute Code(s): G72.9 - MYOPATHY, UNSPECIFIED SNOMED Code(s): 78677210 Comment: - It is hard to determine for sure if her weakness are due to myopathy versus central weakness from her edema - Will continue her steroid despite the weakness given her left [place] edema (3) Diabetes Current Visit: Yes Status: Acute Code(s): E11.9 - TYPE 2 DIABETES MELLITUS WITHOUT COMPLICATIONS SNOMED Code(s): 46629544 Comment: - On glipizide XL 2.5 mg daily and sliding scale. (4) HTN (hypertension) Current Visit: Yes Status: Acute Code(s): I10 - ESSENTIAL (PRIMARY) HYPERTENSION SNOMED Code(s): 28512963 Comment: - Continue amlodipine. (5) Hypothyroid Current Visit: Yes Status: Acute Code(s): E03.9 - HYPOTHYROIDISM, UNSPECIFIED SNOMED Code(s): 37340756 Comment: TSH was 0.34 on 01/31/19, decreased levothyroxine to 100 mcg, start 02/02. (6) Renal cell carcinoma Current Visit: Yes Status: Acute Code(s): C64.9 - MALIGNANT NEOPLASM OF UNSP KIDNEY, EXCEPT RENAL PELVIS SNOMED Code(s): 501241459 Comment: - S/P Gamma Knife to her leyla stem in 09/2018 in [place]. Patient was to have taken 0.5 mg DXM starting 01/26/19 for 7 days then stop this was verified this with her NS Dr. Day ([phone]) by Dr. Freeman. (7) DVT prophylaxis Current Visit: Yes Status: Acute Code(s): Z29.9 - ENCOUNTER FOR PROPHYLACTIC MEASURES, UNSPECIFIED SNOMED Code(s): 994353847 Comment: - SCD Status and Disposition: will plan to meet with family and update her clinical course and discuss palliative care pending her MRI finding and comparing images from [place]
--- NOTE | 2019-02-04 17:03 | CONS ---
CC: Dr. Gusman; Dr. Day* NEUROLOGY FOLLOWUP CONSULT: DATE OF CONSULT/FOLLOWUP: 02/04/19 LOCATION: She is an inpatient in room 445. HOSPITALIST: Dr. Guerrier. CHIEF COMPLAINT: Weakness. INTERVAL HISTORY: Since yesterday, Ms. Wilkinson feels that her strength is a bit better. She denies headaches, numbness in her limbs, or gastrointestinal discomfort. MEDICATIONS: Reviewed and she is on: 1. Dexamethasone 2 mg p.o. b.i.d. 2. Glucotrol XL 2.5 mg p.o. q.day. 3. Sliding scale insulin. 4. Levothyroxine 100 mcg p.o. q.day. 5. Magnesium oxide 400 mg p.o. q.day. 6. MiraLAX. 7. Clonazepam 0.25 mg p.o. 3 times per day as needed for anxiety. 8. Ceftriaxone 1 g IV q.24 hours. 9. Amlodipine 5 mg p.o. q.day. PHYSICAL EXAM: Temperature is 97.3, blood pressure 117/66, heart rate of 50, respiratory rate is 20 and oxygen saturation is 95% on room air. Neurological Exam: Facial musculature seems symmetric and speech is clear. In the upper extremities, she has mild proximal weakness of the triceps and to less extent the biceps. She has reasonably good distal strength. There is no spasticity in the upper extremities. In the lower extremities, I do not detect any spasticity today. Hip flexors are grade 4 to 4- on the left and 4- on the right. She can fully extend the quadriceps. Ankle dorsiflexor strength is grade 4 on the right and 4- on the left. Reflexes are pathologically brisk at the biceps with spread of reflexes, she has crossed adductor reflex in the left knee. Where the right knee just has an adductor response. There is a clonus at the left ankle, but not at the right. IMPRESSION AND PLAN: Impression is that of upper motor neuron pattern weakness rather than steroid myopathy. There may be a component of steroid myopathy, but she is doing better than when I first saw her. I reviewed her imaging which included MRI of the brain just done yesterday. There is a 1.8 cm mass in the left andrew. There is extensive edema into the andrew on both sides, the left middle cerebellar peduncle and into the cerebellum , and little bit down into the medulla and up into the thalamus. I recommend continuing dexamethasone 2 mg twice per day for now. She should have aggressive physical therapy within her limits of tolerance and recommend tapering dexamethasone in the future if she improves clinically and particularly if repeat imaging shows improvement in her edema. Currently, placement for rehab and possibly assisted living is being pursued. [id number]/[facility] #: [id number] MTDD
[2019-02-04 18:52] LABS: Urine Appearance Cloudy; Urine Bilirubin Negative (Negative); Urine Blood Negative (Negative); Urine Color Yellow; Urine Glucose 2+(150 mg/dL) (Negative); Urine Ketones Negative (Negative); Urine Nitrite Negative (Negative); Urine Protein Negative (Negative); Urine Specific Gravity 1.019 (1.010-1.030); Urine Urobilinogen Negative (Negative)
--- NOTE | 2019-02-04 19:04 | PN ---
Progress Note - Progress Note Date of Service: 02/04/19 SOAP: Subjective: []No events ON. No SANTOS Objective: []VSS AAOx3 IVANIA, CN II-XII grossly intact Motor Cara 4-5/5 no drift Sensory grossly intact to light touch Assessment: [] 83 yof renal cell Ca, pontine lesion sp SRS Plan: [] Monitor VS, Neurochecks. Awaiting previous imaging. Continue steroids. Follow up with primary surgeon. No acute ns intervention at this point. Appreciate IM care. Ada Gusman MD
[2019-02-05] MEDS: Levothyroxine TAB* 100 MCG TAB PO SCH (06:06)
[2019-02-05] MEDS: cefTRIAXone(*) 1 GM in NS 0.9% 50 ML* 50 ML IVPB SCH (07:46)
[2019-02-05] MEDS: Insulin LISPRO* 1 UNITS UNIT SUBCUT SCH ×2 (08:24→12:59)
[2019-02-05] MEDS: amLODIPine TAB* 5 MG PO SCH (08:25)
[2019-02-05] MEDS: glipiZIDE TAB.XL* 2.5 MG PO SCH (08:26)
[2019-02-05] MEDS: Docusate CAP* 100 MG PO SCH (08:26)
[2019-02-05] MEDS: Dexamethasone TAB* 1 MG PO SCH (08:26)
[2019-02-05] MEDS: Magnesium Oxide TAB* 400 MG PO SCH (08:26)
[2019-02-05 11:51] VITALS: BP 144/68
--- NOTE | 2019-02-05 14:03 | CONSULT ---
Palliative / Hospice Consult Ordering Provider: Yash Guerrier - PCP-Silke Referal Reason: goals of care discussion/miralax/no narcotics - Subjective Code Status: DNR MOLST Part A Completed: Yes - completed with pt and on chart MOLST Part E Completed:: Yes - completed with pt and on chart - History or Present Illness History or Present Illness: 83yo female with metatstatic renal cell cancer to the brain presents with bilateral leg weakness. PMH pt was diagnosed with renal cell cancer s/p nephrectomy and radiation in [place] in 2016 and discovered brain mets 2019 in [place] underwnet fgamma knife, DM type 2, HTN and hypothyroid. PSHx pt moved from [place] to [place] and was moving in with her son in [place], she has 4 children her sons live locally but her daughter lives in [place], non smoker, no drugs and no etoh. Studies ekg-sinus sim, brain CT-mass in L andrew, midbrain and cerebellum(1.5cm) with vasogenic edema, MRI brain 1.8cm brain stem mass metastatic, mild ventriculomegaly, H/H 13.7/41, BUN/Cr 28/1.18, egfr 43.7, hbA1C 8.4, alb 3.2 and UC E. fecalis. Pt was admitted with bilateral leg weakness felt to be due to steroids and tumor. All history is from pt and limited medical records. Lab Values: Abnormal Lab Results 02/04/19 02/04/19 02/04/19 16:17 18:11 20:36 POC Glucose (mg/dL) 133 H 278 H Urine Color Yellow Urine Appearance Cloudy Urine pH 5.0 Ur Specific [place] 1.019 Urine Protein Negative Urine Ketones Negative Urine Blood Negative Urine Nitrate Negative Urine Bilirubin Negative Urine Urobilinogen Negative Ur Leukocyte Esterase Negative Urine Glucose 2+(150 mg/dl) A 02/05/19 02/05/19 07:23 11:06 POC Glucose (mg/dL) 204 H 170 H Urine Color Urine Appearance Urine pH Ur Specific [place] Urine Protein Urine Ketones Urine Blood Urine Nitrate Urine Bilirubin Urine Urobilinogen Ur Leukocyte Esterase Urine Glucose Laboratory Last Values WBC 13.5 10^3/uL (3.5-10.8) H 02/04/19 04:41 RBC 4.23 10^6 /uL (3.70-4.87) 02/04/19 04:41 Hgb 13.7 g/dL (12.0-16.0) 02/04/19 04:41 Hct 41 % (35-47) 02/04/19 04:41 MCV 97 fL (80-97) 02/04/19 04:41 MCH 32 pg (27-31) H 02/04/19 04:41 MCHC 33 g/dL (31-36) 02/04/19 04:41 RDW 15 % (10-15) 02/04/19 04:41 Plt Count 225 10^3/uL (150-450) 02/04/19 04:41 MPV 9.3 fL (7.4-10.4) 02/04/19 04:41 Neut % (Auto) 76.6 % 02/04/19 04:41 Lymph % (Auto) 16.5 % 02/04/19 04:41 [place] % (Auto) 6.4 % 02/04/19 04:41 Eos % (Auto) 0.2 % 02/04/19 04:41 Baso % (Auto) 0.3 % 02/04/19 04:41 Absolute Neuts (auto) 10.3 10^3/ul (1.5-7.7) H 02/04/19 04:41 Absolute Lymphs (auto) 2.2 10^3/ul (1.0-4.8) 02/04/19 04:41 Absolute Monos (auto) 0.9 10^3/ul (0-0.8) H 02/04/19 04:41 Absolute Eos (auto) 0.0 10^3/ul (0-0.6) 02/04/19 04:41 Absolute Basos (auto) 0.0 10^3/ul (0-0.2) 02/04/19 04:41 Absolute Nucleated RBC 0.0 10^3/ul 02/04/19 04:41 Nucleated RBC % 0.1 02/04/19 04:41 Sodium 140 mmol/L (135-145) 02/04/19 04:41 Potassium 4.5 mmol/L (3.5-5.0) 02/04/19 04:41 Chloride 103 mmol/L (101-111) 02/04/19 04:41 Carbon Dioxide 31 mmol/L (22-32) 02/04/19 04:41 Anion Gap 6 mmol/L (2-11) 02/04/19 04:41 BUN 25 mg/dL (6-24) H 02/04/19 04:41 Creatinine 0.97 mg/dL (0.51-0.95) H 02/04/19 04:41 Est GFR ( Amer) 66.4 (>60) 02/04/19 04:41 Est GFR (Non-Af Amer) 54.8 (>60) 02/04/19 04:41 BUN/Creatinine Ratio 25.8 (8-20) H 02/04/19 04:41 Glucose 224 mg/dL (70-100) H 02/04/19 04:41 POC Glucose (mg/dL) 170 mg/dL (70-100) H 02/05/19 11:06 Hemoglobin A1c 8.4 % (4.0-5.6) H 02/01/19 05:33 Lactic Acid 1.6 mmol/L (0.5-2.0) 01/31/19 02:28 Calcium 9.5 mg/dL (8.6-10.3) 02/04/19 04:41 Phosphorus 2.9 mg/dL (2.5-5.0) 02/04/19 04:41 Magnesium 1.8 mg/dL (1.9-2.7) L 02/04/19 04:41 Total Bilirubin 0.40 mg/dL (0.2-1.0) 02/03/19 05:54 AST 19 U/L (13-39) 02/03/19 05:54 ALT 21 U/L (7-52) 02/03/19 05:54 Alkaline Phosphatase 53 U/L (34-104) 02/03/19 05:54 Total Creatine Kinase 102 U/L (10-223) 01/31/19 02:28 Total Protein 5.7 g/dL (6.4-8.9) L 02/03/19 05:54 Albumin 3.2 g/dL (3.2-5.2) 02/03/19 05:54 Globulin 2.5 g/dL (2-4) 02/03/19 05:54 Albumin/Globulin Ratio 1.3 (1-3) 02/03/19 05:54 TSH 0.34 mcIU/mL (0.34-5.60) 01/31/19 02:28 Urine Color Yellow 02/04/19 18:11 Urine Appearance Cloudy 02/04/19 18:11 Urine pH 5.0 (5-9) 02/04/19 18:11 Ur Specific [place] 1.019 (1.010-1.030) 02/04/19 18:11 Urine Protein Negative (Negative) 02/04/19 18:11 Urine Ketones Negative (Negative) 02/04/19 18:11 Urine Blood Negative (Negative) 02/04/19 18:11 Urine Nitrate Negative (Negative) 02/04/19 18:11 Urine Bilirubin Negative (Negative) 02/04/19 18:11 Urine Urobilinogen Negative (Negative) 02/04/19 18:11 Ur Leukocyte Esterase Negative (Negative) 02/04/19 18:11 Urine WBC (Auto) 3+(>20/hpf) (Absent) A 01/31/19 04:28 Urine RBC (Auto) 1+(3-5/hpf) (Absent) A 01/31/19 04:28 Ur Squamous Epith Cells Present (Absent) A 01/31/19 04:28 Ur Renal Epithelial Cell Present (Absent) A 01/31/19 04:28 Urine Bacteria 1+ (Absent) A 01/31/19 04:28 Urine Glucose 2+(150 mg/dl) (Negative) A 02/04/19 18:11 - Objective Active Medications: Acetaminophen (Tylenol Adult Liq*) 650 mg PO Q4H PRN PRN Reason: PAIN - MILD Amlodipine Besylate (Norvasc Tab*) 5 mg PO DAILY [facility] Last Admin: 02/05/19 08:25 Dose: 5 mg Clonazepam (Klonopin Tab(*)) 0.25 mg PO TID PRN PRN Reason: ANXIETY Dexamethasone (Decadron Tab*) 2 mg PO BID [facility] Last Admin: 02/05/19 08:26 Dose: 2 mg Dextrose (Dextrose 50% Vial 50 Ml*) 25 ml IV PUSH .FOR FS < 60 - SS PRN PRN Reason: FS < 60 Docusate Sodium (Colace Cap*) 200 mg PO DAILY [facility] Last Admin: 02/05/19 08:26 Dose: 200 mg Glipizide (Glucotrol Xl*) 2.5 mg PO DAILY [facility] Last Admin: 02/05/19 08:26 Dose: 2.5 mg Ceftriaxone Sodium 1 gm/ (Sodium Chloride) 50 mls @ 100 mls/hr IVPB Q24H [facility] Last Admin: 02/05/19 07:46 Dose: 100 mls/hr Insulin Human Lispro (Humalog*) 0 units SUBCUT ACHS [facility]; Protocol Last Admin: 02/05/19 12:59 Dose: 2 units Levothyroxine Sodium (Synthroid Tab*) 100 mcg PO DAILY@0600 [facility] Last Admin: 02/05/19 06:06 Dose: 100 mcg Magnesium Oxide (Magox 400 Tab*) 400 mg PO DAILY [facility] Last Admin: 02/05/19 08:26 Dose: 400 mg Miscellaneous (Ativan Pyxis Bradley) 1 ea N/A .ATIVAN IV BRADLEY PRN PRN Reason: PYXIS BRADLEY Polyethylene Glycol/Electrolytes (Miralax*) 17 gm PO DAILY PRN PRN Reason: CONSTIPATION Vital Signs: Vital Signs: Temp Pulse Resp BP Pulse Ox 97.6 F 49 18 144/68 92 02/05/19 07:15 02/05/19 11:15 02/05/19 11:15 02/05/19 11:15 02/05/19 11:15 Patient Weight: Weight 73.164 kg Intake and Output: Intake & Output 02/03/19 02/04/19 02/05/19 02/06/19 06:59 06:59 06:59 06:59 Intake Total 260 507 8804 Output Total 0 0 200 Balance 465 340 825 Weight 73.164 kg Intake: IV Fluids 30 15 ABX - CEFTRIAXONE 0 NS (0.9%) 30 15 IVPB 50 50 ABX - CEFTRIAXONE 50 50 NS (0.9%) 0 Medicated IV 50 GEN - Magnesium 50 Oral 465 210 960 Output: Urine 0 0 200 Other: Estimated Void Small Medium # Bowel Movements 1 Estimated Stool Amount Large # Voids 2 1 ADLs: Meal Record Start: 01/31/19 08: 52 Freq: DAILY@0900,1400,1800 Status: Active Protocol: Created 01/31/19 08:52 System (Rec: 01/31/19 08:52 System TELE-C11) Document 01/31/19 09:00 [id number] (Rec: 01/31/19 10:50 [id number] TELE-C13) Document 01/31/19 13:12 [id number] (Rec: 01/31/19 13:12 [id number] TELE-C01) Document 01/31/19 18:00 [id number] (Rec: 01/31/19 22:38 [id number] TELE-C13) Document 02/01/19 08:36 [id number] (Rec: 02/01/19 08:36 [id number] TELE-C01) Document 02/01/19 14:00 [id number] (Rec: 02/01/19 15:06 [id number] TELE-C01) Document 02/01/19 17:52 [id number] (Rec: 02/01/19 17:53 [id number] TELE-C07) Document 02/02/19 09:00 [id number] (Rec: 02/02/19 13:34 [id number] TELE-C09) Document 02/02/19 13:34 [id number] (Rec: 02/02/19 13:34 [id number] TELE-C09) Document 02/02/19 18:00 [id number] (Rec: 02/02/19 18:19 [id number] TELE-C05) Document 02/03/19 09:00 [id number] (Rec: 02/03/19 14:54 [id number] TELE-C01) Document 02/03/19 14:00 [id number] (Rec: 02/03/19 14:55 [id number] TELE-C01) Document 02/03/19 18:00 [id number] (Rec: 02/03/19 18:46 [id number] TELE-C13) Document 02/04/19 09:00 ALE3547 (Rec: 02/04/19 14:30 OPK0369 TELE-C13) Document 02/04/19 14:00 GBC6706 (Rec: 02/04/19 14:31 [id number] TELE-C13) Document 02/04/19 18:00 [id number] (Rec: 02/04/19 18:20 ZUB6005 TELE-C01) Intake and Output Start: 01/31/19 02: 04 Freq: Status: Active Protocol: Created 01/31/19 02:04 System (Rec: 01/31/19 02:04 System [id number]) Intake and Output Start: 01/31/19 08: 52 Freq: DAILY@0600,1400,2200 Status: Active Protocol: Created 01/31/19 08:52 System (Rec: 01/31/19 08:52 System TELE-C11) Document 01/31/19 12:47 [id number] (Rec: 01/31/19 12:47 [id number] TELE-C07) Document 01/31/19 20:48 [id number] (Rec: 01/31/19 20:51 [id number] TELE-C13) Document 01/31/19 21:17 [id number] (Rec: 01/31/19 21:18 [id number] [facility]- [id number]) Document 02/01/19 04:06 [id number] (Rec: 02/01/19 04:07 GTR8439 TELE-C06) Document 02/01/19 13:42 IMC6856 (Rec: 02/01/19 13:42 VTY1567 MED-M01) Document 02/01/19 22:00 [id number] (Rec: 02/01/19 22:34 [id number] TELE-C07) Document 02/02/19 05:00 [id number] (Rec: 02/02/19 05:00 [id number] TELE-C13) Document 02/02/19 14:00 EBE6696 (Rec: 02/02/19 14:04 HEI3690 TELE-M11) Document 02/02/19 22:00 [id number] (Rec: 02/02/19 22:35 PJC4320 TELE-C05) Document 02/03/19 06:00 [id number] (Rec: 02/03/19 07:02 QML7996 TELE-C05) Document 02/03/19 14:00 GIA0464 (Rec: 02/03/19 14:55 VQQ3497 TELE-C01) Document 02/03/19 21:41 [id number] (Rec: 02/03/19 21:43 OAH7480 TELE-C13) Document 02/04/19 06:00 TFS8635 (Rec: 02/04/19 06:29 IQH1127 TELE-C07) Document 02/04/19 14:00 LGO7513 (Rec: 02/04/19 14:36 [id number] TELE-C13) Document 02/04/19 22:00 [id number] (Rec: 02/04/19 22:07 CXN1937 TELE-C08) Document 02/05/19 05:51 [id number] (Rec: 02/05/19 05:52 [id number] TELE-C05) Eyes: No Scleral Icterus Ears/Nose/Mouth/Throat: NL Teeth, Lips, Gums, Mucous Membranes Moist Neck: Trachea Midline Cardiovascular: NL Sounds; No Murmurs; No JVD Abdominal: NL Sounds; No Tenderness; No Distention Extremities: No Edema - 5x5 bilateral although she is demonstrating weaker in her proximal lower extremeties Neurological: Alert and Oriented x 3, - - +/- 3/5 lower extremity bilateral worse proximal muscles. 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 Pt is congregational [employer] and feels when her time is up it's up. She has not been given a prognosis but plans to ask her physician Dr Day in [place]. She is eager to go to [facility] for rehab to help with her ambulation. If she improves she is interested in assisted living if she declines and has limited prognosis she is interested in hospice. We discussed hospice and the services they offer. She is familiar with hospice because she used their services when her parents in [place]. We also discussed and completed the MOLST form pt doesn't want to be intubated or have CPR and no feeding tube. I gave pt a copy of the MOLST. I offered to call her son but she said it wasn't necessary she would tell him. She will be going to [facility] today. Pt not eligible for hospice as of now because she is going to rehab. KPS 50%, PPS 50% - Time On Unit Date of Evaluation: 02/05/19 Hospice Consult Time in: 13:00 Hospice Consult Time Out: 14:00 Hospice Consult Time Total: 60 > 50% of Time Spend In Counseling or Coordinating Care: Yes
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
== END 2019-02-05 15:14 | DRG 54 ==
LOC: ED 01:55 → MEDTELE 08:04 → OBSVTOIN 12:00
PROVIDERS: ADMIT Internal Medicine; ATTEND Internal Medicine
DX: C79.31 Secondary malignant neoplasm of brain (principal); G93.6 Cerebral edema; G72.0 Drug-induced myopathy; C64.9 Malignant neoplasm of unspecified kidney, except renal pelvis; N39.0 Urinary tract infection, site not specified; L89.312 Pressure ulcer of right buttock, stage 2; G72.9 Myopathy, unspecified; E86.0 Dehydration; E11.9 Type 2 diabetes mellitus without complications; G93.89 Other specified disorders of brain; I10 Essential (primary) hypertension; E03.9 Hypothyroidism, unspecified; T38.0X5A Adverse effect of glucocorticoids and synthetic analogues, initial encounter; B95.2 Enterococcus as the cause of diseases classified elsewhere; E83.42 Hypomagnesemia; Z82.69 Family history of other diseases of the musculoskeletal system and connective tissue; Z88.2 Allergy status to sulfonamides; Z88.8 Allergy status to other drugs, medicaments and biological substances; Z83.3 Family history of diabetes mellitus; Z79.4 Long term (current) use of insulin; Z79.899 Other long term (current) drug therapy
CPT/HCPCS: 36415; 70450; 70551; 80048; 80053; 81003; 81015; 82550; 83036; 83605; 83735; 84100; 84443; 85025; 87077; 87086; 87186; 90471; 90686; 93005; 95885; 95908; 99284; A9270-GY; G0008; G8978-GP-CK; G8979-GP-CI; J0696; J2060; J3475; J8540